=== PATIENT | female | born 1955 | race Caucasian/White ===

== ENCOUNTER → 2019-03-30 | Outpatient (CLI) | payer BC ==
[~2019-03-30] MED LIST: Pantoprazole 40 MG in Sodium Chloride 0.9% 100 ML IV ONE
== END ==
LOC: DL.CLIN 16:15
PROVIDERS: ATTEND Nurse Practitioner
DX: M25.512 Pain in left shoulder (principal)

== ENCOUNTER 2020-01-04 11:32 | Emergency (ER) | payer BC ==
[2020-01-04] MEDS ORDERED: Oxymetazoline 0.05% Nasal Spray 15 ML Bottle NAS ONE (11:34)
--- NOTE | 2020-01-04 11:55 | EDM.PDOC ---
ED HPI GENERAL MEDICAL PROBLEM - General Stated Complaint: NOSE BLEED Time Seen by Provider: 01/04/20 11:40 Source of Information: Reports: Patient History Limitations: Reports: No Limitations - History of Present Illness INITIAL COMMENTS - FREE TEXT/NARRATIVE: This 64 yo female patient was sent to the ED from the [facility] due to a nose bleed. The patient reports she has a history of nosebleeds, but this episode has lasted 45 minutes. The patient did go to the Clinic, but was sent to the ED due to the clinic not having any equipment to stop nose bleeds. Onset: Today Duration: Minutes: (45), Constant Location: Reports: Face (Right nare) Quality: Reports: Other Severity: Moderate Improves with: Reports: None Worsens with: Reports: None Context: Reports: Other Associated Symptoms: Reports: No Other Symptoms - Related Data Allergies Allergy/AdvReac Type Severity Reaction Status Date / Time clindamycin Allergy Cannot Verified 01/04/20 11:36 Remember Home Meds: Home Meds Calcium Carbonate [Tums] 300 mg PO ASDIRECTED PRN 03/30/19 [History] Calcium Carbonate/Vitamin D3 [Calcium 500 + Vit D 200 Tablet] 1 each PO DAILY [History] Dexlansoprazole [Dexilant] 60 mg PO DAILY 03/30/19 [History] Lactobacillus Combo No.10 [Probiotic] 1 each PO DAILY 03/30/19 [History] Levothyroxine Sodium [Synthroid] 50 mcg PO Q48H 03/30/19 [History] Levothyroxine Sodium [Synthroid] 100 mcg PO Q48H 03/30/19 [History] Loratadine [Claritin] 10 mg PO DAILY 03/30/19 [History] Multivitamin [Daily Multiple Vitamin] 1 each PO DAILY 03/30/19 [History] Mylanta 30 ml PO DAILY 03/30/19 [History] ED ROS ENT - Review of Systems Review Of Systems: Comprehensive ROS is negative, except as noted in HPI. ED EXAM, ENT - Physical Exam Exam: See Below Exam Limited By: No Limitations General Appearance: Alert, WD/WN, Mild Distress Eye Exam: Bilateral Eye: EOMI, Normal Inspection, PERRL Ears: Normal External Exam, Normal Canal, Hearing Grossly Normal, Normal TMs Nose: Active Bleeding (Right posterior nare) Mouth/Throat: Normal Inspection, Normal Gums, Normal Lips, Normal Oropharynx, Normal Teeth Head: Atraumatic, Normocephalic Neck: Normal Inspection, Supple, Non-Tender, Full Range of Motion Respiratory/Chest: No Respiratory Distress, Lungs Clear, Normal Breath Sounds, No Accessory Muscle Use, Chest Non-Tender Cardiovascular: Normal Peripheral Pulses, Regular Rate, Rhythm, No Edema, No Gallop, No JVD, No Murmur, No Rub GI/Abdominal: Normal Bowel Sounds, Soft, Non-Tender, No Organomegaly, No Distention, No Abnormal Bruit, No Mass (Female) Exam: Deferred Rectal (Female) Exam: Deferred Back: Normal Inspection, Full Range of Motion Extremities: Normal Inspection, Normal Range of Motion, Non-Tender, No Pedal Edema, Normal Capillary Refill Neurological: Alert, Oriented, CN II-XII Intact, Normal Cognition, Normal Gait, Normal Reflexes, No Motor/Sensory Deficits Psychiatric: Normal Affect, Normal Mood Skin: Warm, Dry, Intact, Normal Color, No Rash Lymphatic: No Adenopathy Course - Vital Signs Last Recorded V/S: Last Vital Signs Temp 37.3 C 01/04/20 11:34 Pulse 110 H 01/04/20 11:34 Resp 16 01/04/20 11:34 BP 169/84 H 01/04/20 11:34 Pulse Ox 98 01/04/20 11:34 - Orders/Labs/Meds Meds: Medications Discontinued Medications Generic Name Dose Route Start Last Admin Trade Name Freq PRN Reason Stop Dose Admin Oxymetazoline HCl 1 ml 01/04/20 11:34 01/04/20 11:44 Afrin Original 0.05% Nasal Hinkle MIRI 01/04/20 11:35 1 ml ONETIME ONE Administration - Re-Assessments/Exams Free Text/Narrative Re-Assessment/Exam: 01/04/20 12:15 Reassessment of the patient revealed the bleeding has stopped. The patient does continue to have nasal drainage (blood tinged clear fluids). The patient was advised that we would like to keep her here for the next 30 minutes to monitor. If the patient does not have any additional profuse bleeding, the patient will be discharged. The patient was satisfied with this plan. Departure - Departure Time of Disposition: 12:44 Disposition: Home, Self-Care 01 Condition: Fair Clinical Impression: Epistaxis, recurrent - Discharge Information *PRESCRIPTION DRUG MONITORING PROGRAM REVIEWED*: Not Applicable *COPY OF PRESCRIPTION DRUG MONITORING REPORT IN PATIENT JAMA: Not Applicable Instructions: Nosebleed, [id number] Forms: ED Department Discharge Care Plan Goals: The patient was advised of the examination results during the visit. The patient 's nostril was sprayed with Afrin while in the ED which stopped the bleeding. The patient was encouraged to put some Aquaphor on a Qtip and apply to each nostril 2 times per day. If the patient has any additional symptoms or concerns , the patient should either return to the emergency department or visit her primary care facility. Sepsis Event Note - Focused Exam Vital Signs: Vital Signs Temp Pulse Resp BP Pulse Ox 01/04/20 11:34 37.3 C 110 H 16 169/84 H 98 Date Exam was Performed: 01/04/20 Time Exam was Performed: 12:34
== END 2020-01-04 12:57 | disposition home or self-care (01) ==
LOC: DL.ED 11:32
DX: R04.0 Epistaxis (principal); Z79.899 Other long term (current) drug therapy; Z88.1 Allergy status to other antibiotic agents
CPT/HCPCS: 99283; A9270

== ENCOUNTER 2020-01-07 19:31 | Emergency (ER) | payer BC ==
[2020-01-07] MEDS ORDERED: Bacitracin Oint 1 GM U/D Packet TOP ONE (21:39)
--- NOTE | 2020-01-07 21:42 | EDM.PDOC ---
ED HPI GENERAL MEDICAL PROBLEM - General Chief Complaint: ENT Problem Stated Complaint: FOLLOW UP Time Seen by Provider: 01/07/20 20:54 Source of Information: Reports: Patient, RN, RN Notes Reviewed History Limitations: Reports: No Limitations - History of Present Illness INITIAL COMMENTS - FREE TEXT/NARRATIVE: patient presents to ER with complaint of nosebleed today. Patient was seen on January 04 with a nosebleed, Afrin was used, bleeding stopped and patient was sent home. Patient returned on January 05 around noon, and a nasal rocket was placed. Patient presented to the ER approximately 12 hours later with swelling to the right side of the face, drainage or purulent from the right eye, and severe pressure/pain. Nasal rocket was removed at that time and there was no bleeding at that time. Patient was started on oral Augmentin and sent home. Patient states she did have some spotting from the right naris yesterday. Today she had a bloody nose, use the Afrin and this helped. She also states she had bleeding down the back of her throat. She has been using Aquaphor to the right near as instructed. She does not use a humidifier at home patient states she does feel somewhat weak and tired and that this has taken a total on her. Patient does have an appointment set up to see Dr. Almonte in ENT on Wednesday. Onset: Gradual Treatments DOWEL PIN WORKER: Reports: Other (see below) Other Treatments DOWEL PIN WORKER: afrin Bilateral Ear Pain Score (Numeric/FACES): 4 - Related Data Allergies Allergy/AdvReac Type Severity Reaction Status Date / Time clindamycin Allergy Cannot Verified 01/07/20 19:54 Remember Home Meds: Home Meds Calcium Carbonate [Tums] 300 mg PO ASDIRECTED PRN 03/30/19 [History] Calcium Carbonate/Vitamin D3 [Calcium 500 + Vit D 200 Tablet] 1 each PO DAILY [History] Dexlansoprazole [Dexilant] 60 mg PO DAILY 03/30/19 [History] Lactobacillus Combo No.10 [Probiotic] 1 each PO DAILY 03/30/19 [History] Levothyroxine Sodium [Synthroid] 50 mcg PO Q48H 03/30/19 [History] Levothyroxine Sodium [Synthroid] 100 mcg PO Q48H 03/30/19 [History] Loratadine [Claritin] 10 mg PO DAILY 03/30/19 [History] Amoxicillin/Clavulanate K [Augmentin 875-125 MG] 875 mg PO BID 01/07/20 [History ] Past Medical History - Past Health History Medical/Surgical History: Denies Medical/Surgical History HEENT History: Reports: Impaired Vision, Sinusitis Other HEENT History: Scheduled with ENT on Wed for sinusitis. Has had previous nose bleeds this past week. Cardiovascular History: Reports: None Respiratory History: Reports: None Gastrointestinal History: Reports: GERD, Other (See Below) Other Gastrointestinal History: heartburn Genitourinary History: Reports: None LADLER History: Reports: None Musculoskeletal History: Reports: None Neurological History: Reports: None Psychiatric History: Reports: None Endocrine/Metabolic History: Reports: Hypothyroidism Hematologic History: Reports: None Immunologic History: Reports: None Dermatologic History: Reports: None - Infectious Disease History Infectious Disease History: Reports: Chicken Pox, Mumps - Past Surgical History Head Surgeries/Procedures: Reports: None Respiratory Surgical History: Reports: None Social & Family History - Family History Family Medical History: Noncontributory - Tobacco Use Smoking Status *Q: Never Smoker Second Hand Smoke Exposure: No - Caffeine Use Caffeine Use: Reports: Coffee Other Caffeine Use: 1 cup / day - Recreational Drug Use Recreational Drug Use: No ED ROS ENT - Review of Systems Review Of Systems: Comprehensive ROS is negative, except as noted in HPI. ED EXAM, ENT - Physical Exam Exam: See Below Exam Limited By: No Limitations General Appearance: Alert, WD/WN, No Apparent Distress Eye Exam: Bilateral Eye: EOMI, Normal Inspection Ears: Normal External Exam, Hearing Grossly Normal Nose: Nasal Discharge (green/yellow), Nasal Tenderness, Dried Blood (right Tabares) , Injected Turbinates (bilateral) Mouth/Throat: Normal Inspection, Normal Gums, Normal Lips, Normal Oropharynx, Normal Teeth Head: Atraumatic, Normocephalic Neck: Normal Inspection, Supple, Non-Tender, Full Range of Motion Respiratory/Chest: No Respiratory Distress, Lungs Clear, Normal Breath Sounds, No Accessory Muscle Use, Chest Non-Tender Cardiovascular: Normal Peripheral Pulses, Regular Rate, Rhythm, No Edema, No Gallop, No JVD, No Murmur, No Rub GI/Abdominal: Normal Bowel Sounds, Soft, Non-Tender (Female) Exam: Deferred Rectal (Female) Exam: Deferred Back: Normal Inspection, Full Range of Motion Extremities: Normal Inspection, Normal Range of Motion, Non-Tender, No Pedal Edema, Normal Capillary Refill Neurological: Alert, Oriented, CN II-XII Intact, Normal Cognition, Normal Gait, Normal Reflexes, No Motor/Sensory Deficits Psychiatric: Normal Affect, Normal Mood Skin: Warm, Dry, Intact, Normal Color, No Rash Lymphatic: No Adenopathy Course - Vital Signs Last Recorded V/S: Last Vital Signs Temp 97.4 F 01/07/20 19:46 Pulse 103 H 01/07/20 19:46 Resp 16 01/07/20 19:46 BP 163/75 H 01/07/20 19:46 Pulse Ox 99 01/07/20 19:46 - Orders/Labs/Meds Labs: Laboratory Tests 01/07/20 Range/Units 21:05 WBC 9.2 (5.0-10.0) 10^3/uL RBC 4.33 (4.2-5.4) 10^6/uL Hgb 14.2 (12.0-16.0) g/dL Hct 42.3 (37.0-47.0) % MCV 97.7 (80-100) fL MCH 32.8 (27.0-34.0) pg MCHC 33.6 (33.0-35.0) g/dL Plt Count 310 (150-450) 10^3/uL Neut % (Auto) 68.8 (42.2-75.2) % Lymph % (Auto) 14.1 L (20.5-50.1) % [place] % (Auto) 15.1 H (2-8) % Eos % (Auto) 1.6 (1.0-3.0) % Baso % (Auto) 0.4 (0.0-1.0) % Meds: Medications Discontinued Medications Generic Name Dose Route Start Last Admin Trade Name Freq PRN Reason Stop Dose Admin Bacitracin 1 dose 01/07/20 21:39 01/07/20 21:48 Bacitracin Oint 1 Gm TOP 01/07/20 21:40 1 dose ONETIME ONE Administration - Re-Assessments/Exams Free Text/Narrative Re-Assessment/Exam: 01/07/20 22:23 discussed patient case with Dr. Almonte who states the patient should use saline mist to the nose, bacitracin ointment in the nose, and continue using the Afrin. He states he will see her on Wednesday in the clinic at her regularly scheduled appointment. Dr. Almonte states if the patient returns with bleeding that is unable to be stopped, nasal packing should be done again. Departure - Departure Time of Disposition: 21:40 Disposition: Home, Self-Care 01 Condition: Fair Clinical Impression: Epistaxis Acute sinus infection Qualifiers: Sinusitis location: unspecified location Recurrence: not specified as recurrent Qualified Code(s): J01.90 - Acute sinusitis, unspecified - Discharge Information *PRESCRIPTION DRUG MONITORING PROGRAM REVIEWED*: No *COPY OF PRESCRIPTION DRUG MONITORING REPORT IN PATIENT JAMA: No Instructions: Sinusitis, Adult, [id number], Nosebleed, [id number] Forms: ED Department Discharge Additional Instructions: RX: Apply Bacitracin to the affected nare three times daily Use Saline spray to the nares three times daily Use the Afrin for any bleeding Follow up with Dr. Almonte on Wednesday If bleeding you cannot stop, return to the ER for packing Sepsis Event Note - Evaluation Sepsis Screening Result: No Definite Risk - Focused Exam Vital Signs: Vital Signs Temp Pulse Resp BP Pulse Ox 01/07/20 19:46 97.4 F 103 H 16 163/75 H 99 Date Exam was Performed: 01/07/20 Time Exam was Performed: 22:21
== END 2020-01-07 21:52 | disposition home or self-care (01) ==
LOC: DL.ED 19:31
DX: J01.90 Acute sinusitis, unspecified (principal); R04.0 Epistaxis; E03.9 Hypothyroidism, unspecified; Z88.1 Allergy status to other antibiotic agents; Z79.899 Other long term (current) drug therapy
CPT/HCPCS: 36415; 85025; 99283